=== PATIENT | male | born 1980 | race African-American/Black ===

== ENCOUNTER 2016-03-19 20:50 | Emergency (ER) | payer MEDICARE, OTHER ==
[~2016-03-19] VITALS: Ht 193 cm; Wt 93.0 kg
[~2016-03-19 20:50] MED LIST: ZOFRAN ODT4 MG ORAL
[2016-03-19 21:18] VITALS: BP 148/86
[2016-03-19] MEDS ORDERED: CLINDAMYCIN HC300 MG ORAL (21:41)
--- NOTE | 2016-03-19 21:41 | Emergency Room Report ---
History of Present Illness General Chief Complaint: Pain Source: Patient Present Illness HPI This is a 36-year-old male who is right-hand dominant. He has a history of IV drug abuse with injecting crystal methamphetamine. He presents with chief complaint of left arm pain and swelling. Onset today. Also felt numbness. Denies any fever chills denies any nausea vomiting. Pain is 5/10. No fever or chills. No drainage. Allergies: Coded Allergies: No Known Allergies (Unverified , 08/08/14) Patient History Past Medical History: see triage record, old chart reviewed Past Surgical History: none Pertinent Family History: none Social History: Reports: drug use Immunizations: other Reviewed Nursing Documentation: PMH: Agreed, PSxH: Agreed Nursing Documentation-PMH Past Medical History: No History, Except For Review of Systems Eye: Denies: blurred vision, eye pain ENT: Denies: ear pain, nose congestion, throat swelling Respiratory: Denies: cough, shortness of breath Cardiovascular: Denies: chest pain, palpitations Gastrointestinal: Denies: abdominal pain, diarrhea, nausea, vomiting Musculoskeletal: Denies: back pain, joint pain Skin: Denies: rash Neurological: Denies: headache, numbness Endocrine: Denies: increased thirst, increased urine Hematologic/Lymphatic: Denies: easy bruising All Other Systems: negative except mentioned in HPI Physical Exam Vital Signs Date Time Temp Pulse Resp B/P Pulse Ox O2 Delivery O2 Flow Rate FiO2 03/19/16 21:11 97.9 92 16 148/86 99 Room Air vitals normal Sp02 EP Interpretation: reviewed, normal General Appearance: well appearing, no apparent distress, alert Head: normocephalic, atraumatic Eyes: bilateral eye EOMI, bilateral eye PERRL ENT: hearing grossly normal, normal pharynx Neck: full range of motion, supple, no meningismus Respiratory: chest non-tender, lungs clear, normal breath sounds Cardiovascular #1: regular rate, rhythm, no murmur Gastrointestinal: normal bowel sounds, non tender, no mass, no organomegaly, no bruit, non-distended Musculoskeletal: back normal, gait/station normal, normal range of motion, other - Left upper extremity: The dorsum of his hand small edema. No fluctuant. No pus. Mild warmth. Along the dorsal aspect of the forearm also some mild tenderness and some injection site. No abscess. No redness. Sensation normal. Radial pulse 2+. Psychiatric: mood/affect normal Skin: warm/dry Medical Decision Making Diagnostic Impression: Primary Impression: Cellulitis of left upper extremity Additional Impression: Amphetamine abuse ER Course Patient presents with cellulitis and possibly lymphangitis secondary to IV drug abuse. No evidence of septic joint, necrotizing fasciitis, or abscess. Tenderness is superficial, unlikely to be DVT. Last Vital Signs Date Time Temp Pulse Resp B/P Pulse Ox O2 Delivery O2 Flow Rate FiO2 03/19/16 21:18 16 148/86 99 Room Air 03/19/16 21:11 97.9 92 Status: improved Disposition: HOME, SELF-CARE Condition: Stable Scripts Clindamycin Hcl (CLINDAMYCIN HCL) 300 Mg Capsule 300 MG ORAL THREE TIMES A DAY, #21 CAP Prov: RANJIT VILLARREAL M.D. 03/19/16 Additional Instructions: Followup with your Dr. in 7 days. Return for increasing pain, swelling, drainage, fever or any concern. Abstain from drugs and alcohol. RANJIT VILLARREAL M.D. Mar 19, 2016 21:41
[2016-03-19] MEDS ORDERED: Bactrim DS (160mg/800mg) tab ORAL ONE (21:45)
[2016-03-19 21:50] VITALS: BP 148/86
== END 2016-03-19 21:50 | disposition home or self-care (01) ==
LOC: EMR 21:44
DX: L03.114 Cellulitis of left upper limb (principal); F15.10 Other stimulant abuse, uncomplicated
CPT/HCPCS: 99282

== ENCOUNTER 2016-03-24 09:44 | Emergency (ER) | payer MEDICARE, OTHER ==
[~2016-03-24] VITALS: Ht 193 cm; Wt 93.0 kg
[~2016-03-24 09:44] MED LIST changes: +CLINDAMYCIN HC300 MG ORAL
--- NOTE | 2016-03-24 10:41 | Emergency Room Report ---
History of Present Illness General Chief Complaint: Diarrhea Source: Patient Present Illness HPI Patient presents with complaints of diarrhea and states that after taking the first pill of antibiotic for his cellulitis he began having diarrhea Denies any abdominal pain or cramping Denies any chest pain or shortness of breath denies any back or flank pain at this time however he stated that previously 2 days ago he has some discomfort in the right flank region Denies any rash denies any blood in the stool Allergies: Coded Allergies: No Known Allergies (Unverified , 08/08/14) Patient History Past Medical History: see triage record Pertinent Family History: none Reviewed Nursing Documentation: PMH: Agreed, PSxH: Agreed Review of Systems All Other Systems: negative except mentioned in HPI Physical Exam Vital Signs Date Time Temp Pulse Resp B/P Pulse Ox O2 Delivery O2 Flow Rate FiO2 03/24/16 10:00 97.9 94 16 119/77 100 Room Air Sp02 EP Interpretation: reviewed, normal General Appearance: well appearing, no apparent distress Head: normocephalic, atraumatic Eyes: bilateral eye EOMI, bilateral eye PERRL ENT: hearing grossly normal, normal pharynx, TMs + canals normal, uvula midline Neck: full range of motion, supple, no meningismus, no bony tend Respiratory: lungs clear, normal breath sounds, no rhonchi, no respiratory distress, no retraction, no accessory muscle use Cardiovascular #1: normal peripheral pulses, regular rate, rhythm, no edema, no gallop, no JVD, no murmur Gastrointestinal: normal bowel sounds, non tender, soft, no mass, no organomegaly, non-distended, no guarding, no hernia, no pulsatile mass, no rebound Genitourinary: no CVA tenderness Musculoskeletal: normal inspection Neurologic: oriented x3, responsive, apartment rental agent III-XII nml as tested, motor strength/ tone normal, sensory intact Psychiatric: mood/affect normal Skin: normal color, no rash, warm/dry, palpation normal Lymphatic: normal inspection, no adenopathy Medical Decision Making Diagnostic Impression: Primary Impression: Diarrhea ER Course Given the patient's recent antibiotic use and diarrhea c diff examination was considered and performed and it is found to be negative Patient has rested comfortably remains hemodynamically stable I did not feel that any further acute intervention was required patient has an appointment with his physician later this afternoon and will continue to followup appropriately Clostridium difficile stool test negative Last Vital Signs Date Time Temp Pulse Resp B/P Pulse Ox O2 Delivery O2 Flow Rate FiO2 03/24/16 10:00 97.9 94 16 119/77 100 Room Air Status: improved Disposition: HOME, SELF-CARE Condition: Stable Referrals: NON PHYSICIAN (PCP) Additional Instructions: Patient is provided with the discharge instructions notified to follow up with primary doctor in the next 2-3 days otherwise return to the er with any worsening symptoms. NICKY EASON D.O. Mar 24, 2016 10:41
[2016-03-24 13:00] VITALS: BP 105/65
[2016-03-24 13:10] VITALS: BP 105/65
== END 2016-03-24 13:10 | disposition home or self-care (01) ==
LOC: EMR 10:28
DX: R19.7 Diarrhea, unspecified (principal)
CPT/HCPCS: 87493; 99282

== ENCOUNTER 2016-04-19 01:57 | Emergency (ER) | payer MEDICARE, OTHER ==
[~2016-04-19] VITALS: Ht 193 cm; Wt 97.5 kg
[2016-04-19 02:05] VITALS: BP 146/98
[2016-04-19] MEDS ORDERED: PREZCOBIX 8001 EACH PO (02:09)
[2016-04-19] MEDS ORDERED: DESCOVY 200-251 EACH PO (02:09)
[2016-04-19] MEDS ORDERED: ACYCLOVIR400 MG ORAL (02:09)
[2016-04-19] MEDS ORDERED: Norco 5mg/325mg tab ONE (02:21)
[2016-04-19] MEDS ORDERED: Amoxicillin 500mg cap ONE (02:22)
[2016-04-19] MEDS ORDERED: IBUPROFEN600 MG ORAL (02:25)
[2016-04-19] MEDS ORDERED: AUGMENTIN 875-1 EAC1 ORAL (02:25)
--- NOTE | 2016-04-19 02:25 | Emergency Room Report ---
History of Present Illness General Chief Complaint: Earache Source: Patient Present Illness HPI This is a 36-year-old male who has a history HIV. He is taking medication for it. He said that his viral load is undetectable. CD4 count is high. He presents with chief complaint of right ear pain. Onset for last 2 days. His been using [id number] ear drop without success. Now can here. Has congestion runny nose. He said that he get frequent ear infections a kid and require tubes. No cough or congestion. Allergies: Coded Allergies: No Known Allergies (Unverified , 08/08/14) Patient History Past Medical History: see triage record, old chart reviewed, HIV Past Surgical History: other Pertinent Family History: none Social History: Denies: alcohol use Immunizations: other Reviewed Nursing Documentation: PMH: Agreed, PSxH: Agreed Review of Systems Eye: Denies: blurred vision, eye pain ENT: Reports: ear pain, Denies: nose congestion, throat swelling Respiratory: Denies: cough, shortness of breath Cardiovascular: Denies: chest pain, palpitations Gastrointestinal: Denies: abdominal pain, diarrhea, nausea, vomiting Musculoskeletal: Denies: back pain, joint pain Skin: Denies: rash Neurological: Denies: headache, numbness Endocrine: Denies: increased thirst, increased urine Hematologic/Lymphatic: Denies: easy bruising All Other Systems: negative except mentioned in HPI Physical Exam Vital Signs Date Time Temp Pulse Resp B/P Pulse Ox O2 Delivery O2 Flow Rate FiO2 04/19/16 01:58 98.6 113 16 146/98 98 Room Air vitals with tachycardia Sp02 EP Interpretation: reviewed, normal General Appearance: well appearing, no apparent distress, alert Head: normocephalic, atraumatic Eyes: bilateral eye EOMI, bilateral eye PERRL ENT: normal pharynx, other - Right ear impacted with cerumen. Left TM is mildly erythematous Neck: full range of motion, supple, no meningismus Respiratory: chest non-tender, lungs clear, normal breath sounds Cardiovascular #1: regular rate, rhythm, no murmur Gastrointestinal: normal bowel sounds, non tender, no mass, no organomegaly, no bruit, non-distended Musculoskeletal: back normal, gait/station normal, normal range of motion Psychiatric: mood/affect normal Skin: warm/dry Procedures Additional Procedure Procedure Narrative Procedure: Cerumen disimpaction Indication: Cerumen impaction Description: Using a 18-gauge angiocatheter, I irrigated the ear. Moderate amount of cerumen removed. I rechecked TM on right ear is swollen and erythematous. The can't hear now. Medical Decision Making Diagnostic Impression: Primary Impression: Bilateral otitis media Qualified Codes: H66.003 - Acute suppurative otitis media without spontaneous rupture of ear drum, bilateral Additional Impression: Right ear impacted cerumen ER Course Patient with bilateral otitis media, right greater than left. He felt better now. Dose of antibiotics given here. We'll discharge home. No evidence of sepsis, mastoiditis, or meningitis Last Vital Signs Date Time Temp Pulse Resp B/P Pulse Ox O2 Delivery O2 Flow Rate FiO2 04/19/16 01:58 98.6 113 16 146/98 98 Room Air Status: improved Disposition: HOME, SELF-CARE Condition: Stable Scripts Ibuprofen* (MOTRIN*) 600 Mg Tablet 600 MG ORAL THREE TIMES A DAY, #30 TAB 0 Refills Prov: RANJIT VILLARREAL M.D. 04/19/16 Amoxicillin/Potassium Clav 875-125* (AUGMENTIN 875-125 TABLET*) 1 Each Tablet 1 TAB ORAL TWICE A DAY, #14 TAB Prov: RANJIT VILLARREAL M.D. 04/19/16 Patient Instructions: Otitis Media, Adult, [id number] Additional Instructions: Followup with your DrLelo in 7 days. Return if symptom worsen. RANJIT VILLARREAL M.D. Apr 19, 2016 02:25
[2016-04-19 02:30] VITALS: BP 146/98
[2016-04-19] MEDS ORDERED: Norco 5mg/325mg tab ORAL ONE (02:30)
== END 2016-04-19 03:00 | disposition home or self-care (01) ==
LOC: EMR 02:49
DX: H66.93 Otitis media, unspecified, bilateral (principal); H61.21 Impacted cerumen, right ear
CPT/HCPCS: 69210

== ENCOUNTER 2016-04-28 13:54 | Emergency (ER) | payer MEDICARE, OTHER ==
[~2016-04-28] VITALS: Ht 193 cm; Wt 98.0 kg
[~2016-04-28 13:54] MED LIST changes: +ACYCLOVIR400 MG ORAL; +AUGMENTIN 875-1 EAC1 ORAL; +DESCOVY 200-251 EACH PO; +IBUPROFEN600 MG ORAL; +PREZCOBIX 8001 EACH PO
[2016-04-28 15:28] VITALS: BP 128/84
--- NOTE | 2016-04-28 21:16 | Emergency Room Report ---
History of Present Illness General Chief Complaint: Pain Source: Patient Present Illness HPI Pt not in waiting area and has been called multiple times. Pt has left without being seen. Allergies: Coded Allergies: No Known Allergies (Unverified , 08/08/14) Nursing Documentation-[facility] Past Medical History: No History, Except For Physical Exam Vital Signs Date Time Temp Pulse Resp B/P Pulse Ox O2 Delivery O2 Flow Rate FiO2 04/28/16 14:05 98.1 98 16 128/84 99 Room Air Medical Decision Making PA Attestation Dr. bryant is my supervising physician. Patient management was discussed with my supervising physician ER Course Pt not in waiting area and has been called multiple times. Pt has left without being seen. Last Vital Signs Date Time Temp Pulse Resp B/P Pulse Ox O2 Delivery O2 Flow Rate FiO2 04/28/16 15:28 98.1 98 16 128/84 99 Room Air Disposition: LEFT W/OUT BEING SEEN Condition: Unknown Referrals: NON PHYSICIAN (PCP) MISSAEL WOOTEN Apr 28, 2016 21:16
== END 2016-04-28 15:29 | disposition left against medical advice (07) ==
LOC: EMR 14:35
DX: Z53.21 Procedure and treatment not carried out due to patient leaving prior to being seen by health care provider (principal)
CPT/HCPCS: 99281

== ENCOUNTER 2017-10-17 04:57 | Emergency (ER) | payer MEDICARE, OTHER ==
[~2017-10-17] VITALS: Ht 188 cm; Wt 86.2 kg
[2017-10-17] MEDS ORDERED: Naloxone 1mg/ml 2ml IVP ONE (05:15)
--- NOTE | 2017-10-17 05:20 | Emergency Room Report ---
History of Present Illness General Chief Complaint: Altered Level of Consciousness Source: EMS Present Illness HPI Is a 37-year-old -[place] male brought in by EMS with altered mental status. He was found unresponsive on the sidewalk. He has pinpoint pupil and not breathing very well. They gave him 2 mg Narcan IV without much effect. Unable to get any other history from this patient because of his condition. There was no trauma on the patient. Allergies: Coded Allergies: No Known Allergies (Unverified , 08/08/14) UNABLE TO ASSESS (Unverified , 10/17/17) Patient History Past Medical History: see triage record, old chart reviewed, unable to obtain Past Surgical History: other Pertinent Family History: none Immunizations: other Reviewed Nursing Documentation: PMH: Agreed; PSxH: Agreed Nursing Documentation-PMH Past Medical History Deferred: Patient Unconscious Review of Systems All Other Systems: limited - secondary to his condition Physical Exam Vital Signs Date Time Temp Pulse Resp B/P (MAP) Pulse Ox O2 Delivery O2 Flow Rate FiO2 10/17/17 04:44 97.4 60 14 140/97 98 Room Air 97.3 vitals normal Sp02 EP Interpretation: reviewed, normal General Appearance: well appearing, no apparent distress, other - somnolent, snoring Head: normocephalic, atraumatic Eyes: bilateral eye PERRL - people 2 mm and reactive, bilateral eye EOMI ENT: hearing grossly normal Neck: full range of motion, supple, no meningismus Respiratory: chest non-tender, lungs clear, normal breath sounds Cardiovascular #1: regular rate, rhythm, no murmur Gastrointestinal: normal bowel sounds, non tender, no mass, no organomegaly, no bruit, non-distended Musculoskeletal: back normal, normal range of motion Neurologic: grossly normal Psychiatric: mood/affect normal Skin: warm/dry Medical Decision Making Diagnostic Impression: Primary Impression: Encephalopathy acute Additional Impression: Methamphetamine abuse ER Course Patient presents with altered mental status. No response to Narcan. He woke up after getting in and out catheter. Initially it denies any alcohol drugs but reluctantly admit to using IV methamphetamine. Denies suicidal thoughts or homicidal thought. He is awake now. We'll discharge home. This patient is a chronic risk of self injury due to poor impulse control, limited coping skills, and judgment intermittently impaired by intoxication. I believe that the available clinical evidence to suggest that these characteristics derived primarily from personality disorder and are likely very stable over time. Hospitalization would likely attenuate risk of self-harm only during care home period, without lasting risk reduction. Serious self-harm , while possible, would likely be inadvertent, and because of impulsivity, and foreseeable. For these reasons, I do not believe hospitalization would provide meaningful reduction in risk of self-harm. EKG Diagnostic Results Rate: normal Rhythm: NSR ST Segments: no acute changes Rhythm Strip Diag. Results Rhythm Strip Time: 05:20 EP Interpretation: yes Rate: 50 Rhythm: NSR, no PVC's, no ectopy Last Vital Signs Date Time Temp Pulse Resp B/P (MAP) Pulse Ox O2 Delivery O2 Flow Rate FiO2 10/17/17 04:44 97.4 60 14 140/97 98 Room Air 97.3 Status: improved Disposition: HOME, SELF-CARE Condition: Stable Additional Instructions: Abstain from drugs and alcohol. Go to rehabilitation. Follow-up with your doctor in 7 days. Return if worse. RANJIT VILLARREAL M.D. Oct 17, 2017 05:20
[2017-10-17 06:09] LABS: BASOPHILS % (AUTO) 1.3 % (0.0-2.0); EOSINOPHILS % (AUTO) 1.8 % (0.0-3.0); HEMATOCRIT 51.1 % (42.0-52.0); HEMOGLOBIN 16.6 G/DL (14.2-18.0); LYMPHOCYTES % (AUTO) 32.6 % (20.0-45.0); MEAN CORPUSCULAR VOLUME 91 FL (80-99); MONOCYTES % (AUTO) 12.6 % (1.0-10.0); NEUTROPHILS % (AUTO) 51.7 % (45.0-75.0); PLATELET COUNT 394 K/UL (150-450); RED BLOOD COUNT 5.61 M/UL (4.70-6.10); RED CELL DISTRIBUTION WIDTH 12.6 % (11.6-14.8); WHITE BLOOD COUNT 6.8 K/UL (4.8-10.8)
[2017-10-17 06:11] LABS: APPEARANCE,URINE SLIGHTLY CLOUDY; BILIRUBIN, URINE NEGATIVE (NEGATIVE); COLOR,URINE BROWN; GLUCOSE, URINE (UA) NEGATIVE (NEGATIVE); KETONES,URINE 3+ (NEGATIVE); LEUKOCYTE ESTERASE ,URINE 1+ (NEGATIVE); NITRITE,URINE NEGATIVE (NEGATIVE); PH,URINE 5 (4.5-8.0); PROTEIN,URINE 2+ (NEGATIVE); UROBILINOGEN,URINE 8 MG/DL (0.0-1.0)
[2017-10-17 06:23] LABS: ANION GAP 9 mmol/L (5-15); BLOOD UREA NITROGEN 17 mg/dL (7-18); CALCIUM 9.4 MG/DL (8.5-10.1); CARBON DIOXIDE 29 MMOL/L (21-32); CHLORIDE 102 MMOL/L (98-107); CREATININE 1.3 MG/DL (0.55-1.30); POTASSIUM 4.5 MMOL/L (3.5-5.1); SODIUM 140 MMOL/L (136-145)
[2017-10-17 06:46] VITALS: BP 135/95
[2017-10-17 11:46] VITALS: BP 129/88
--- NOTE | 2017-10-23 00:48 | Cardiology Report ---
APPROVED REPORT EKG Measurement Heart [id number] Sinus bradycardia Minimal voltage criteria for LVH, may be normal variant Early repolarization Borderline ECG
== END 2017-10-17 11:49 | disposition home or self-care (01) ==
LOC: EDBD 04:57 → EMR 06:09
DX: G93.40 Encephalopathy, unspecified (principal); F15.10 Other stimulant abuse, uncomplicated
CPT/HCPCS: 36415; 80048; 80307; 81001; 85025; 93005; 96360; 99284; G0480; 80329

== ENCOUNTER 2018-04-02 11:15 | Emergency (ER) | payer MEDICARE, OTHER ==
[~2018-04-02] VITALS: Ht 193 cm; Wt 95.7 kg
[2018-04-02] MEDS ORDERED: SERTRALINE20 MG/1 M1 PO (11:23)
[2018-04-02] MEDS ORDERED: TRAZODONE HCL300 MG ORAL (11:23)
[2018-04-02 11:33] VITALS: BP 142/89
--- NOTE | 2018-04-02 11:50 | Emergency Room Report ---
History of Present Illness General Chief Complaint: Pain Source: Patient, Medical Record Present Illness HPI Patient presents with a fall and trauma to the nasal area 2 days ago Reports that initially there was significant blood noted however it has stopped since then Patient had some continued discomfort to the tip of the nose denies any lapse of consciousness denies any headache denies any chest pain denies any further nasal bleeding Allergies: Coded Allergies: No Known Allergies (Unverified , 79) Patient History Past Medical History: see triage record Pertinent Family History: none Reviewed Nursing Documentation: PMH: Agreed; PSxH: Agreed Nursing Documentation-PMH Past Medical History: No History, Except For Review of Systems All Other Systems: negative except mentioned in HPI Physical Exam Vital Signs Date Time Temp Pulse Resp B/P (MAP) Pulse Ox O2 Delivery O2 Flow Rate FiO2 04/02/18 11:19 98.1 107 19 154/90 100 Room Air Sp02 EP Interpretation: reviewed, normal General Appearance: well appearing, no apparent distress Head: normocephalic, atraumatic Eyes: bilateral eye PERRL, bilateral eye EOMI ENT: hearing grossly normal, normal pharynx, other - Small erythema/abrasion to the nasal tip, septum is midline no obvious hematoma no active bleeding Neck: supple Respiratory: lungs clear Cardiovascular #1: regular rate, rhythm Musculoskeletal: normal inspection Neurologic: alert, oriented x3, responsive Skin: other - As above Medical Decision Making Diagnostic Impression: Primary Impression: nasal contusion ER Course Patient has findings consistent with likely nasal contusion I discussed with the patient that ruling out a fracture cannot be made 100% with clinical exam however does not appear to have any deviation Patient was agreeable to this description and will have continued outpatient follow-up Last Vital Signs Date Time Temp Pulse Resp B/P (MAP) Pulse Ox O2 Delivery O2 Flow Rate FiO2 04/02/18 11:33 98.1 79 20 142/89 100 Room Air Status: unchanged Disposition: HOME, SELF-CARE Condition: Stable Patient Instructions: Contusion, [id number] Additional Instructions: Patient is provided with the discharge instructions notified to follow up with primary doctor in the next 2-3 days otherwise return to the er with any worsening symptoms. Please note that this report is being documented using [employer] technology. This can lead to erroneous entry secondary to incorrect interpretation by the dictating instrument. Juventino Soto DO Apr 02, 2018 11:50
[2018-04-02 11:52] VITALS: BP 132/68
== END 2018-04-02 11:53 | disposition home or self-care (01) ==
LOC: EMR 11:45
DX: S00.33XA Contusion of nose, initial encounter (principal); W19.XXXA Unspecified fall, initial encounter; Y92.9 Unspecified place or not applicable
CPT/HCPCS: 99282

== ENCOUNTER 2020-03-07 15:54 | Emergency (ER) | payer MEDICARE, OTHER ==
[~2020-03-07] VITALS: Ht 193 cm; Wt 102.1 kg
[~2020-03-07 15:54] MED LIST changes: +BACTRIM DS TAB1 EAC1 ORAL; +CEPHALEXIN500 MG ORAL; +MUPIROCIN22 GM TOPIC; +SERTRALINE20 MG/1 M1 PO; +TRAZODONE HCL300 MG ORAL
[2020-03-07] MEDS ORDERED: AMOXICILLIN500 MG ORAL (16:36)
[2020-03-07 16:39] VITALS: BP 151/95
[2020-03-07 16:42] VITALS: BP 151/95
--- NOTE | 2020-03-07 16:43 | Emergency Room Report ---
History of Present Illness General Chief Complaint: Toothache Source: Patient Present Illness HPI Disclaimer: Please note that this report is being documented using [employer] technology. This can lead to erroneous entry secondary to incorrect interpretation by the dictating instrument. HPI: 40-year-old male history of HIV presents from home secondary to dental abscess. He has had left lower gum pain for the past 2 weeks worse last night. Denies any fevers nausea or vomiting. Pain is currently 8 out of 10. 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 COVID-19 Screening: Negative COVID-19 COVID-19 Testing Source: 2 weeks ago Patient History Reviewed Nursing Documentation: PMH: Agreed; PSxH: Agreed Nursing Documentation-PMH Hx Cardiac Problems: No - HIV Hx Asthma: Yes Hx Cancer: No Hx Gastrointestinal Problems: Yes Hx Neurological Problems: No - fibromyalgia Review of Systems All Other Systems: negative except mentioned in HPI Physical Exam Vital Signs Date Time Temp Pulse Resp B/P (MAP) Pulse Ox O2 Delivery O2 Flow Rate FiO2 03/07/20 15:58 98.1 91 16 151/95 (113) 96 Room Air Sp02 EP Interpretation: reviewed, normal General Appearance: well appearing, no apparent distress Head: normocephalic, atraumatic Eyes: bilateral eye PERRL, bilateral eye EOMI ENT: hearing grossly normal, moist mucus membranes, other - Gum swelling and tenderness noted on the left lower jawline no fluctuance Neck: full range of motion, supple Respiratory: lungs clear, normal breath sounds, no rhonchi, no respiratory distress, no retraction, no wheezing Cardiovascular #1: normal peripheral pulses, regular rate, rhythm, no murmur Gastrointestinal: non tender, soft, non-distended, no guarding Neurologic: alert, oriented x3, no focal defects Skin: normal color, warm/dry Medical Decision Making Diagnostic Impression: Primary Impression: Dental abscess ER Course Patient presents with suspected dental abscess. He was nontoxic and in no acute distress. I did not palpate any drainable lesion. Will start patient on p.o. antibiotics. Recommended avoiding cigarette smoking. Otherwise nontoxic no acute distress stable for discharge. Last Vital Signs Date Time Temp Pulse Resp B/P (MAP) Pulse Ox O2 Delivery O2 Flow Rate FiO2 03/07/20 15:58 98.1 91 16 151/95 (113) 96 Room Air Disposition: HOME, SELF-CARE Condition: Stable Scripts Amoxicillin* (AMOXIL*) 500 Mg Capsule 500 MG ORAL BID, #14 CAP Prov: Wilver Summers M.D. 03/07/20 Patient Instructions: Dental Abscess, [id number] Additional Instructions: Patient is instructed to follow-up with her primary care doctor, primary care clinic or [facility] in 1 to 2 days. Patient instructed to return for any worsening symptoms or concerns. Wilver Summers M.D. Mar 07, 2020 16:43
== END 2020-03-07 16:45 | disposition home or self-care (01) ==
LOC: EMR 16:20
DX: K04.7 Periapical abscess without sinus (principal); J45.909 Unspecified asthma, uncomplicated; M79.7 Fibromyalgia; Z21 Asymptomatic human immunodeficiency virus [HIV] infection status
CPT/HCPCS: 99282